=== PATIENT | female | born 1990 | race Caucasian/White ===

== ENCOUNTER → 2016-11-15 | Outpatient (CLI) | payer BC | LOC: M LAB 07:09 | PROVIDERS: ATTEND Nurse Practitioner Women's Health | DX: O99.810 Abnormal glucose complicating pregnancy (principal); Z3A.00 Weeks of gestation of pregnancy not specified ==

== ENCOUNTER → 2017-10-23 | Outpatient (REF) | payer BC | LOC: M LAB REF 12:35 | DX: D48.5 Neoplasm of uncertain behavior of skin (principal) | CPT/HCPCS: 88305 ==

== ENCOUNTER → 2018-03-05 | Outpatient (REF) | payer BC | LOC: M LAB REF 12:22 | DX: J02.9 Acute pharyngitis, unspecified (principal) | CPT/HCPCS: 87081 ==

== ENCOUNTER → 2019-01-23 | Outpatient (REF) | payer BC, OTHER ==
[2019-01-23 12:56] LABS: BASO % 0.5 % (0.0-1.0); EOS # 0.1 10^3/uL (0.0-0.50); EOS % 2.3 % (0.0-3.0); HEMATOCRIT 40.7 % (36.0-47.0); HEMOGLOBIN 13.6 g/dl (12.0-15.5); LYMPH # 2.2 10^3/uL (1.5-4.5); LYMPH % 36.2 % (24.0-44.0); MEAN CORPUSCULAR HEMOGLOBIN 30.4 pg (27.0-33.0); MEAN CORPUSCULAR HGB CONC 33.4 g/dl (32.0-36.5); MEAN CORPUSCULAR VOLUME 91.1 fl (80.0-96.0); MONO # 0.5 10^3/uL (0.0-0.8); MONO % 8.7 % (0.0-5.0); NEUTROPHILS # 3.2 10^3/uL (1.8-7.7); NEUTROPHILS % 52.1 % (36.0-66.0); PLATELET COUNT, AUTOMATED 262 10^3/uL (150-450); RED BLOOD COUNT 4.47 10^6/uL (4.00-5.40); WHITE BLOOD COUNT 6.1 10^3/uL (4.0-10.0)
[2019-01-23 13:48] LABS: ALBUMIN 3.7 GM/DL (3.2-5.2); ALT/SGPT 25 U/L (12-78); BILIRUBIN,TOTAL 0.3 MG/DL (0.2-1.0); BLOOD UREA NITROGEN 12 MG/DL (7-18); CALCIUM LEVEL 9.6 MG/DL (8.5-10.1); CARBON DIOXIDE LEVEL 26 MEQ/L (21-32); CHLORIDE LEVEL 106 MEQ/L (98-107); CHOLESTEROL LEVEL 232 MG/DL (<200); CHOLESTEROL RISK RATIO 6.823 (<5); CREATININE FOR GFR 0.66 MG/DL (0.55-1.30); FREE T4 1.22 NG/DL (0.76-1.46); GLOMERULAR FILTRATION RATE > 60.0 (>60); GLUCOSE, FASTING 87 MG/DL (70-100); HDL CHOLESTEROL 34 MG/DL (>40); LDL CHOLESTEROL 158 MG/DL (<100); NON-HDL-C 198 MG/DL; POTASSIUM SERUM 4.3 MEQ/L (3.5-5.1); SODIUM LEVEL 140 MEQ/L (136-145); THYROID STIMULATING HORMONE 0.307 uIU/ML (0.358-3.740); TOTAL PROTEIN 7.2 GM/DL (6.4-8.2); TRIGLYCERIDES LEVEL 200 MG/DL (<150)
== END ==
LOC: M LAB REF 12:05 → M LABDRWAD 12:05
PROVIDERS: ATTEND Physician Assistant
DX: E06.3 Autoimmune thyroiditis (principal); Z79.899 Other long term (current) drug therapy

== ENCOUNTER 2019-07-25 08:29 | Emergency (ER) | payer OTHER ==
[~2019-07-25] VITALS: Ht 170.2 cm; Wt 93.2 kg
[2019-07-25] MEDS ORDERED: ALL10TAB29 (08:39)
[2019-07-25] MEDS ORDERED: CYCL10TA (08:39)
[2019-07-25] MEDS ORDERED: LEVO175T2 (08:39)
[2019-07-25] MEDS ORDERED: CYCLOBENZAPRINE 10 MG TAB PO ONE (09:00)
[2019-07-25] MEDS ORDERED: IBUPROFEN 800 MG TAB PO ONE (09:00)
[2019-07-25] MEDS ORDERED: LIDOCAINE 5% (LIDODERM) PATCH TD ONE (09:00)
--- NOTE | 2019-07-25 09:23 | REP ---
Clinical: Lower back pain. Technique: AP, lateral, bilateral oblique and coned-down views of the lumbosacral spine. Findings: Endplate sclerosis with disc space narrowing noted at L5-S1. Remainder of the examination is normal. No acute fracture / compression injury or subluxation. No spondylolysis or spondylolisthesis. Impression: Mild focal degenerative spondylosis at L5-S1 Electronically Signed by Gage Pina MD 07/25/2019 09:16 A
[2019-07-25] MEDS ORDERED: NORCO, ANEXSIA 5/325MG TABLET (HYDROcodone/ACETAMINOPHEN) PO ONE (09:45)
[2019-07-25] MEDS ORDERED: NORC1TAB7 PO (10:18)
[2019-07-25 10:23] VITALS: BP 123/69
[2019-07-25] MEDS ORDERED: **NOTE PATIENT COMMENT** MISC XX SCH (21:00)
== END 2019-07-25 10:27 | disposition home or self-care (01) ==
LOC: M ED 08:29
DX: M54.5 Low back pain (principal); E03.9 Hypothyroidism, unspecified; Z79.899 Other long term (current) drug therapy; Z79.890 Hormone replacement therapy; Z88.1 Allergy status to other antibiotic agents; Z88.2 Allergy status to sulfonamides; Z88.8 Allergy status to other drugs, medicaments and biological substances

== ENCOUNTER → 2020-03-23 | Outpatient (CLI) | payer SELFPAY ==
[~2020-03-23] MED LIST: CETI-24; CYCL-707; LEVO175T2; NORC1TAB7 PO
== END ==
LOC: M LABSMTC 09:48
PROVIDERS: ATTEND Pediatrics
DX: Z20.828 Contact with and (suspected) exposure to other viral communicable diseases (principal)

== ENCOUNTER → 2020-08-04 | Outpatient (CLI) | payer BC ==
--- NOTE | 2020-08-04 11:19 | REPVR ---
PROCEDURE INFORMATION: Exam: MR Lumbar Spine Without Contrast Exam date and time: 08/04/2020 8:49 AM Age: 29 years old Clinical indication: Low back pain; Additional info: Lumbago w/ RT sciatica TECHNIQUE: Imaging protocol: Multiplanar magnetic resonance images of the lumbar spine without intravenous contrast. COMPARISON: CR Spine. Lumbosacral, complete 07/25/2019 9:00 AM FINDINGS: Vertebrae: There is no fracture or listhesis. Marrow signal is within normal limits. Spinal cord: Normal signal. No cord compression. L1-L2: There is shallow disc bulging. There is mild facet hypertrophy. No significant spinal canal stenosis. No neural foraminal stenosis. L2-L3: There is shallow disc bulging. There is mild facet hypertrophy. No significant spinal canal stenosis. No neural foraminal stenosis. Small bilateral perineural cysts. L3-L4: There is shallow disc bulging. There is mild facet and ligamentous hypertrophy. No significant spinal canal stenosis. No neural foraminal stenosis. L4-L5: There is diffuse disc bulging with small right paracentral protrusion. This indents the ventral thecal sac. There is moderate facet hypertrophy. There is mild bilateral neural foraminal narrowing. L5-S1: There is diffuse disc bulging with a superimposed small right foraminal protrusion. There is [id number] facet hypertrophy. There is mild right neural foraminal narrowing. Disc material comes into close contact with the exiting right L5 nerve root. Soft tissues: Unremarkable. IMPRESSION: Degenerative disc disease and spondylosis. At L5/S1, disc bulge with superimposed small right foraminal protrusion comes into close contact with the exiting right L5 nerve root. Electronically signed by: Kaia Ellis On 08/04/2020 11:19:36 AM
== END ==
LOC: M RAD 07:38
PROVIDERS: ATTEND Physician Assistant
DX: M54.41 Lumbago with sciatica, right side (principal); M51.26 Other intervertebral disc displacement, lumbar region; M51.36 Other intervertebral disc degeneration, lumbar region; M51.27 Other intervertebral disc displacement, lumbosacral region; M51.37 Other intervertebral disc degeneration, lumbosacral region

== ENCOUNTER → 2020-10-29 | Outpatient (REF) | payer BC ==
[2020-10-29 12:38] LABS: HEMATOCRIT 38.1 % (36.0-47.0); HEMOGLOBIN 12.4 g/dl (12.0-15.5); MEAN CORPUSCULAR HEMOGLOBIN 30.1 pg (27.0-33.0); MEAN CORPUSCULAR HGB CONC 32.5 g/dl (32.0-36.5); MEAN CORPUSCULAR VOLUME 92.5 fl (80.0-96.0); PLATELET COUNT, AUTOMATED 218 10^3/uL (150-450); RED BLOOD COUNT 4.12 10^6/uL (4.00-5.40); WHITE BLOOD COUNT 8.7 10^3/uL (4.0-10.0)
[2020-10-29 13:58] LABS: HIV 1&2 SCREEN CENTAUR NEGATIVE (NEGATIVE)
== END ==
LOC: M PLALAB 09:46
PROVIDERS: ATTEND Advanced Practice Midwife
DX: Z36.89 Encounter for other specified antenatal screening (principal)

== ENCOUNTER → 2020-11-09 | Outpatient (CLI) | payer BC | LOC: M WHC 13:21 | PROVIDERS: ATTEND Obstetrics & Gynecology | DX: Z53.8 Procedure and treatment not carried out for other reasons (principal) ==

== ENCOUNTER → 2020-12-14 | Outpatient (CLI) | payer BC ==
--- NOTE | 2020-12-14 16:36 | REP ---
INDICATION: ANATOMY. COMPARISON: 10/07/2020 TECHNIQUE: Real-time sonographic evaluation of the gravid uterus performed. FINDINGS: Estimated gestational age is18 weeks 4 days, EDC 05/13/2021. Today's measurements indicate appropriate growth. Presentation: Variable Placenta anterior, grade 1, without evidence of placenta previa. heart rate is recorded at 158 beats per minute. Amniotic fluid is subjectively normal. Closed cervical length is measured at 4.4 cm. Biometry chart: BPD: 44 mm, 19 weeks 3 days, 72nd percentile. HC: 165 mm, 19 weeks 2 days, 69th percentile AC: 134 mm, 18 weeks 6 days, 56th percentile Femur length: 29 mm, 18 weeks 6 days, 58th percentile HC to AC ratio: 1.21, normal range 1.07-1.26. Estimated weight: 264g, 67th percentile. anatomy: Cranium: Grossly normal Lateral Ventricles/Choroid Plexus: There is no hydrocephalus. There is a 5 mm cystic structure in the left choroid plexus. Posterior Fossa/Cerebellum: Grossly normal Nose/lips/profile: Not well seen due to position Four chamber heart: Not well seen due to position Right ventricular outflow tract: Not well seen due to position Left ventricular outflow tract: Not well seen due to position Left-sided stomach: Grossly normal Kidneys: Grossly normal Bladder: Grossly normal Cord Insertion: Grossly normal 3 vessel cord: Grossly normal Spine: Grossly normal IMPRESSION: Viable single intrauterine gestation as above. <Electronically signed by Kole Fink > 12/14/20 [id number]
== END ==
LOC: M WHC 15:37
PROVIDERS: ATTEND Obstetrics & Gynecology
DX: Z36.89 Encounter for other specified antenatal screening (principal); Z3A.18 18 weeks gestation of pregnancy

== ENCOUNTER → 2021-01-04 | Outpatient (REF) | payer BC | LOC: M PLALAB 13:51 | PROVIDERS: ATTEND Obstetrics & Gynecology | DX: Z53.9 Procedure and treatment not carried out, unspecified reason (principal) ==

== ENCOUNTER → 2021-01-25 | Outpatient (CLI) | payer BC ==
--- NOTE | 2021-01-25 22:41 | REP ---
INDICATION: F/U ANATOMY COMPARISON: 12/14/2020 TECHNIQUE: Transabdominal obstetrical ultrasound with color Doppler evaluation. FINDINGS: Examination demonstrates a single live intrauterine in breech presentation. motion is identified by technologist. Placenta is noted anterior and grade 1 without evidence for placenta previa or abruption. Amniotic fluid volume is normal. Cervix measures 4.2 cm in length and appears closed.. Selected gestational age: 24 weeks 4 days with KIRA 05/13/2021. Gestational age by current measurements 25 weeks 2 days with KIAR 05/08/2021. FHR equals 139 beats per minute. Estimated weight 773 grams (66thpercentile). Anatomical assessment demonstrates normal structures including facial profile, nose/lips, orbits. Previously identified choroid plexus cysts have resolved. Evaluation of the four-chamber heart/ventricular outflow tracts is again suboptimal due to positioning/motion. IMPRESSION: Single live intrauterine in breech presentation demonstrating appropriate estimated weight/growth. Continued limited evaluation of the heart/ventricular outflow tracts. <Electronically signed by Gage Pina > 01/25/21 [id number]
== END ==
LOC: M WHC 14:02
PROVIDERS: ATTEND Obstetrics & Gynecology
DX: Z36.89 Encounter for other specified antenatal screening (principal); Z3A.24 24 weeks gestation of pregnancy

== ENCOUNTER → 2021-02-03 | Outpatient (CLI) | payer BC ==
[2021-02-03 18:17] LABS: HEMATOCRIT 36.9 % (36.0-47.0); HEMOGLOBIN 11.9 g/dl (12.0-15.5); MEAN CORPUSCULAR HEMOGLOBIN 31.3 pg (27.0-33.0); MEAN CORPUSCULAR HGB CONC 32.2 g/dl (32.0-36.5); MEAN CORPUSCULAR VOLUME 97.1 fl (80.0-96.0); PLATELET COUNT, AUTOMATED 214 10^3/uL (150-450); WHITE BLOOD COUNT 10.3 10^3/uL (4.0-10.0)
== END ==
LOC: M PLALAB 15:20
PROVIDERS: ATTEND Advanced Practice Midwife
DX: O99.280 Endocrine, nutritional and metabolic diseases complicating pregnancy, unspecified trimester (principal)

== ENCOUNTER → 2021-02-07 | Outpatient (CLI) | payer BC ==
[2021-02-07 14:29] LABS: HEMATOCRIT 35.3 % (36.0-47.0); HEMOGLOBIN 11.6 g/dl (12.0-15.5); MEAN CORPUSCULAR HEMOGLOBIN 31.4 pg (27.0-33.0); MEAN CORPUSCULAR HGB CONC 32.9 g/dl (32.0-36.5); MEAN CORPUSCULAR VOLUME 95.7 fl (80.0-96.0); PLATELET COUNT, AUTOMATED 193 10^3/uL (150-450); RED BLOOD COUNT 3.69 10^6/uL (4.00-5.40); WHITE BLOOD COUNT 10.6 10^3/uL (4.0-10.0)
== END ==
LOC: M PLALAB 09:33
PROVIDERS: ATTEND Advanced Practice Midwife
DX: Z36.89 Encounter for other specified antenatal screening (principal)

== ENCOUNTER → 2021-02-24 | Outpatient (CLI) | payer BC ==
[2021-02-24 10:38] LABS: FREE T4 0.58 NG/DL (0.76-1.46); THYROID STIMULATING HORMONE 5.74 uIU/ML (0.358-3.740)
== END ==
LOC: M LAB 07:29
PROVIDERS: ATTEND Advanced Practice Midwife
DX: Z36.89 Encounter for other specified antenatal screening (principal); Z3A.26 26 weeks gestation of pregnancy; O99.280 Endocrine, nutritional and metabolic diseases complicating pregnancy, unspecified trimester; E03.9 Hypothyroidism, unspecified

== ENCOUNTER → 2021-03-01 | Outpatient (CLI) | payer BC ==
--- NOTE | 2021-03-01 16:02 | REP ---
INDICATION: F/U ANATOMY. OBTAIN FOUR-CHAMBER HEART VIEW AND VENTRICULAR OUTFLOW TRACKS. COMPARISON: 01/25/2021 TECHNIQUE: Transabdominal FINDINGS: Multiple ultrasonographic images of the gravid uterus shows a single living intrauterine gestation in the transverse position. Doppler interrogation of the heart shows a heart rate of 170 beats per minute. The placenta is anterior and not low-lying. The cervix measures 5.5 cm length and is closed. The subjective amniotic fluid volume is within normal limits. BPD: 7.7 cm 30 weeks 6 days HC: 28.5 cm 31 weeks 2 days AC: 25.8 cm 30 weeks 0 days FL: 5.8 cm 30 weeks 2 days The estimated weight is 1539 g which is at the 62nd percentile for a 29 week 4 day gestational age. The ventricular outflow tracts were seen to be within normal limits, however, four-chamber heart view was still suboptimal. IMPRESSION: Single living intrauterine gestation as described above with an estimated gestational age of 30 weeks 4 days via composite criteria and an estimated date of delivery of 05/06/2021. Repeat examination for optimal visualization of the four-chamber heart is recommended. <Electronically signed by Pavan Burnett > 03/01/21 [id number]
== END ==
LOC: M WHC 15:08
PROVIDERS: ATTEND Advanced Practice Midwife
DX: Z34.92 Encounter for supervision of normal pregnancy, unspecified, second trimester (principal); Z3A.30 30 weeks gestation of pregnancy

== ENCOUNTER → 2021-03-15 | Outpatient (CLI) | payer BC ==
[~2021-03-15] MED LIST changes: -LEVO175T2; +LEVO175T2 PO; +OMEP40CA4 PO; +OXYC-517 PO; +PRENTAB9 PO; +SIME180C25 PO
--- NOTE | 2021-03-15 13:38 | REP ---
INDICATION: F/U ANATOMY COMPARISON: 03/01/2021 TECHNIQUE: Transabdominal obstetrical ultrasound with color Doppler evaluation. FINDINGS: Examination demonstrates a single live intrauterine in cephalic presentation. motion is identified by technologist. Placenta is noted anterior and grade 1 without evidence for placenta previa or abruption. Amniotic fluid volume is normal. Cervix measures 5.3 cm in length and appears closed.. Selected gestational age: 31 weeks 4 days with KIRA 05/13/2021. Gestational age by current measurements 33 weeks 3 days with KIRA 04/30/2021. FHR equals 138 beats per minute. Estimated weight 2208 grams (greater than 97thpercentile based on selected age at 31 weeks 1 day). Anatomical assessment demonstrates normal structures including four-chamber heart/ventricular outflow tracts. IMPRESSION: Single live advanced gestation in cephalic presentation demonstrating greater than expected interval growth. Images of the heart and cardiac ventricular outflow tracts appear normal. <Electronically signed by Gage Pina > 03/15/21 [id number]
== END ==
LOC: M WHC 13:10
PROVIDERS: ATTEND Obstetrics & Gynecology
DX: Z36.2 Encounter for other antenatal screening follow-up (principal); Z3A.31 31 weeks gestation of pregnancy

== ENCOUNTER 2021-03-22 00:48 | Outpatient (CLI) | payer BC ==
[2021-03-22] VITALS (8 sets, daily range): BP systolic 108–130; BP diastolic 51–62
[~2021-03-22] VITALS: Ht 167.6 cm; Wt 102.3 kg
[~2021-03-22 00:48] MED LIST changes: -OMEP40CA4 PO; -OXYC-517 PO; -PRENTAB9 PO; -SIME180C25 PO
[2021-03-22] MEDS ORDERED: OMEP40CA4 PO (01:06)
[2021-03-22] MEDS ORDERED: PRENTAB9 PO (01:06)
[2021-03-22] MEDS ORDERED: SIME180C25 PO (01:06)
--- NOTE | 2021-03-22 01:43 | IPNPDOC ---
Text Note Date of Service The patient was seen on 03/22/21. NOTE S: Natasha is a 30-year-old female who is at 32 4/7 with an KIRA of 05/13/2021 which was confirmed via first trimester ultrasound. She initiated care at [facility] and her has been complicated by GDM, hypothyroidism, GERD, migraines, and low back pain. She complains of abdominal pain that began yesterday at 1830. The pain is in the upper quadrants and is described as sharp pain that comes in waves. Patient states she feeling movement. She denies any loss of fluids, vaginal bleeding, or uterine contractions. Pain is 7/10 when it occurs. Medical history: Hypothyroidism controlled with 125 mcg daily, migraines, low b ack pain, GERD Surgical Hx: tonsillectomy and adenoidectomy Family history: stroke, heart attack, polycynthemia vera, breast cancer Social Hx: single (FOB present and supportive), non-smoker, denies history of drug or alcohol abuse. OB Hx: -12/30/14: of living female at 41.1 weeks gestation weighting 10 lbs 5 -02/14/17: of living female weighting 9 lbs 6 oz O: VS, ultrasound and labs-see below FHR 150 with moderate variability, no decelerations. [place] with no uterine contractions. General: Alert and oriented x 3. Appears to be uncomfortable and moaning. Respiratory: Breathing comfortably on room air, no use of accessory muscles. Abdomen: Gravid, soft. Non-tender to palpation. A: IUP at 32 4/7, abdominal pain, kidney stones, biliary colic related P: Labs as ordered: see below U/S ordered: see below. IV to be started. NS bolus then 125 cc/hr. IV Rochephin ordered due to elevated WBC count. Antiemetics and PO and IV pain medication ordered. Reviewed diagnosis with patient and . Consider Flomax. VS,Fishbone, I+O VS, Fishbone, I+O Vital Signs Date Time Temp Pulse Resp B/P (MAP) Pulse Ox O2 Delivery O2 Flow Rate FiO2 03/22/21 01:07 98.1 100 20 130/62 (84) Item Value Date Time White Blood Count 17.0 10^3/uL H 03/22/21 0139 Red Blood Count 3.77 10^6/uL L 03/22/21 0139 Hemoglobin 11.3 g/dl L 03/22/21 0139 Hematocrit 34.2 % L 03/22/21 013 Mean Corpuscular Volume 90.7 fl 03/22/21 013 Mean Corpuscular Hemoglobin 30.0 pg 03/22/21 013 Mean Corpuscular Hemoglobin Concent 33.0 g/dl 03/22/21 013 Red Cell Distribution Width 14.1 % 03/22/21 013 Platelet Count 208 10^3/uL 03/22/21 0139 Nucleated Red Blood Cells % (auto) 0.0 % 03/22/21 013 Item Value Date Time Sodium Level 138 MEQ/L 03/22/21 013 Potassium Level 3.8 MEQ/L 03/22/21 013 Chloride Level 107 MEQ/L 03/22/21 013 Carbon Dioxide Level 21 MEQ/L 03/22/21 013 Anion Gap 10 MEQ/L 03/22/21 013 Blood Urea Nitrogen 8 MG/DL 03/22/21 0139 Creatinine 0.40 MG/DL L 03/22/21 013 Glomerular Filtration Rate > 60.0 03/22/21 013 Fasting Glucose 106 MG/DL H 03/22/21 0139 Calcium Level 9.0 MG/DL 03/22/21 0139 Total Bilirubin 0.5 MG/DL 03/22/21 0139 Aspartate Amino Transf (AST/SGOT) 13 U/L 03/22/21 0139 Alanine Aminotransferase (ALT/SGPT) 14 U/L 03/22/21 013 Alkaline Phosphatase 91 U/L 03/22/21 0139 Total Protein 6.2 GM/DL L 03/22/21 0139 Albumin 2.7 GM/DL L 03/22/21 0139 Amylase Level 34 U/L 03/22/21 0139 Albumin/Globulin Ratio 0.8 L 03/22/21 0139 Lipase 81 U/L 03/22/21 013 Item Value Date Time Urine Color YELLOW 03/22/21 0139 Urine Appearance CLOUDY H 03/22/21 0139 Urine pH 6.0 UNITS 03/22/21 0139 Urine Specific [place] 1.015 03/22/21 013 Urine Protein NEGATIVE mg/dL 10/12/21 0139 Urine Glucose (Auto)(UA) NEGATIVE mg/dL 03/22/21138 Urine Ketones (Auto) 1+ mg/dL H 03/22/21138 Urine Blood NEGATIVE 03/22/21138 Urine Nitrite NEGATIVE 03/22/21138 Urine Bilirubin NEGATIVE 03/22/21138 Urine Urobilinogen 2.0 mg/dL H 03/22/21138 Urine Leukocyte Esterase (Auto) NEGATIVE 03/22/21138 Urine WBC (Auto) 4 /HPF H 03/22/21138 Urine RBC (Auto) 2 /HPF 03/22/21138 Urine Hyaline Casts (Auto) 0 /LPF 03/22/21138 Urine Bacteria (Auto) 1+ H 03/22/21138 Urine Squamous Epithelial Cells 5 /HPF 03/22/21138 Urine Calcium Oxalate Cryst (Auto) MODERATE 03/22/21138 Urine Mucus (Auto) SMALL 03/22/21138 NAME: NATASHA THAO DATE OF : 1990 BUSINESS NUMBER: [id number] AGE: 30 SEX: F REPORT #: [id number] ROOM: [facility] TECHNOLOGIST: [facility] DOCTOR: JUSTIN FABIAN CNM Ordered for Date&Time: 03/22/21111 cc: [~ rep ct ivnm] Service Date&Time: 03/22/21219 EXAMINATION REQUESTED: Pelvis, limited US REASON FOR PATIENT VISIT: ABDOMINAL PAIN REASON FOR EXAMINATION: abdominal pain; rule out appedicitis PROCEDURE INFORMATION: Exam: US Abdomen, Limited; Appendix Exam date and time: 03/22/2021 2:20 AM Age: 30 years old Clinical indication: Abdominal pain; Right lower quadrant; Additional info: Abdominal pain; Rule out appedicitis TECHNIQUE: Imaging protocol: US abdomen. Real time ultrasound with image documentation. Limited exam focused on the appendix. COMPARISON: US OBS FOLLOW UP OR REPEAT 03/15/2021 1:13 PM FINDINGS: Appendix: Nonvisualization of the appendix. Uterus: Single viable intrauterine gestation. Gestation: heart rate is 135 bpm. IMPRESSION: Nonvisualization of the appendix. If there is high clinical concern for acute appendicitis MRI of the pelvis is suggested for further evaluation. Electronically signed by: Amilcar Dash On 03/22/2021 03:26:58 AM NAME: NATASHA THAO DATE OF : 1990 BUSINESS NUMBER: [id number] AGE: 30 SEX: F REPORT #: [id number] ROOM: [facility] TECHNOLOGIST: [facility] DOCTOR: JUSTIN FABIAN CNM Ordered for Date&Time: 03/22/21111 cc: [~ rep ct ivnm] Service Date&Time: 03/22/21219 EXAMINATION REQUESTED: GALLBLADDER US REASON FOR PATIENT VISIT: ABDOMINAL PAIN REASON FOR EXAMINATION: abdominal pain; PROCEDURE INFORMATION: Exam: US Abdomen, Limited; Right Upper Quadrant Exam date and time: 03/22/2021 2:20 AM Age: 30 years old Clinical indication: Abdominal pain; Acute; TECHNIQUE: Imaging protocol: US abdomen. Real time ultrasound with image documentation. Limited exam focused on the right upper quadrant. COMPARISON: CT ABD PELVIS WITH CONTRAST 02/20/2016 6:50 AM FINDINGS: Liver: Coarse echogenic attenuating liver parenchyma suggestive of steatosis. Gallbladder: Sludge in the gallbladder. No specific evidence of acute cholecystitis. Common bile duct: Normal. No stones. No dilation. Pancreas: Visualized pancreas is unremarkable. Right kidney: Normal. No mass. No hydronephrosis. IMPRESSION: Sludge in the gallbladder. No specific evidence of acute cholecystitis. Electronically signed by: Amilcar Dash On 03/22/2021 03:25:26 AM DD: AMILCAR DASH MD 03/22/21219 DT: CESARIO 03/22/21324 DS: OLESYA 03/22/21324 JUSTIN FABIAN CNM Mar 22, 2021 01:43
[2021-03-22] MEDS ORDERED: MORPHINE 4 MG/ML 1ML VIAL/SYRINGE (J2270) IV PRN (01:50)
[2021-03-22 02:00] LABS: HEMATOCRIT 34.2 % (36.0-47.0); HEMOGLOBIN 11.3 g/dl (12.0-15.5); MEAN CORPUSCULAR VOLUME 90.7 fl (80.0-96.0); PLATELET COUNT, AUTOMATED 208 10^3/uL (150-450); RED BLOOD COUNT 3.77 10^6/uL (4.00-5.40)
[2021-03-22 02:06] LABS: APPEARANCE, URINE CLOUDY (CLEAR); BACTERIA, URINE AUTO 1+ (NEGATIVE); BILIRUBIN, URINE AUTO NEGATIVE (NEGATIVE); BLOOD, URINE BLOOD NEGATIVE (NEGATIVE); CALCIUM OXALATE CRYSTALS MODERATE; COLOR, URINE YELLOW (YELLOW); GLUCOSE, URINE (UA) AUTO NEGATIVE (NEGATIVE); KETONE, URINE AUTO 1+ mg/dL (NEGATIVE); LEUKOCYTE ESTERASE, URINE AUTO NEGATIVE (NEGATIVE); MUCUS, URINE SMALL (NEGATIVE); NITRITE, URINE AUTO NEGATIVE (NEGATIVE); PROTEIN, URINE AUTO NEGATIVE (NEGATIVE); RBC, URINE AUTO 2 /HPF (0-3); SPECIFIC GRAVITY URINE AUTO 1.015 (1.002-1.035); SQUAMOUS EPITHELIAL CELL UR AU 5 /HPF (0-6); WBC, URINE AUTO 4 /HPF (0-3)
[2021-03-22 02:29] LABS: ALBUMIN 2.7 GM/DL (3.2-5.2); ALT/SGPT 14 U/L (12-78); AMYLASE 34 U/L (25-115); BILIRUBIN,TOTAL 0.5 MG/DL (0.2-1.0); BLOOD UREA NITROGEN 8 MG/DL (7-18); CARBON DIOXIDE LEVEL 21 MEQ/L (21-32); CHLORIDE LEVEL 107 MEQ/L (98-107); GLOMERULAR FILTRATION RATE > 60.0 (>60); GLUCOSE, FASTING 106 MG/DL (70-100); LIPASE 81 U/L (73-393); POTASSIUM SERUM 3.8 MEQ/L (3.5-5.1); SODIUM LEVEL 138 MEQ/L (136-145); TOTAL PROTEIN 6.2 GM/DL (6.4-8.2)
[2021-03-22] MEDS ORDERED: PERCOCET 5MG/325MG TAB PO PRN (02:30)
[2021-03-22] MEDS ORDERED: HOME MED LIST COMPLETE! XX SCH (03:05)
--- NOTE | 2021-03-22 03:26 | REPVR ---
PROCEDURE INFORMATION: Exam: US Abdomen, Limited; Right Upper Quadrant Exam date and time: 03/22/2021 2:20 AM Age: 30 years old Clinical indication: Abdominal pain; Acute; TECHNIQUE: Imaging protocol: US abdomen. Real time ultrasound with image documentation. Limited exam focused on the right upper quadrant. COMPARISON: CT ABD PELVIS WITH CONTRAST 02/20/2016 6:50 AM FINDINGS: Liver: Coarse echogenic attenuating liver parenchyma suggestive of steatosis. Gallbladder: Sludge in the gallbladder. No specific evidence of acute cholecystitis. Common bile duct: Normal. No stones. No dilation. Pancreas: Visualized pancreas is unremarkable. Right kidney: Normal. No mass. No hydronephrosis. IMPRESSION: Sludge in the gallbladder. No specific evidence of acute cholecystitis. Electronically signed by: Amilcar Dash On 03/22/2021 03:25:26 AM
--- NOTE | 2021-03-22 03:27 | REPVR ---
PROCEDURE INFORMATION: Exam: US Abdomen, Limited; Appendix Exam date and time: 03/22/2021 2:20 AM Age: 30 years old Clinical indication: Abdominal pain; Right lower quadrant; Additional info: Abdominal pain; Rule out appedicitis TECHNIQUE: Imaging protocol: US abdomen. Real time ultrasound with image documentation. Limited exam focused on the appendix. COMPARISON: US OBS FOLLOW UP OR REPEAT 03/15/2021 1:13 PM FINDINGS: Appendix: Nonvisualization of the appendix. Uterus: Single viable intrauterine gestation. Gestation: heart rate is 135 bpm. IMPRESSION: Nonvisualization of the appendix. If there is high clinical concern for acute appendicitis MRI of the pelvis is suggested for further evaluation. Electronically signed by: Amilcar Dash On 03/22/2021 03:26:58 AM
[2021-03-22] MEDS ORDERED: BUTORPHANOL 2 MG/ML INJ (J0595) IV ONE (04:35)
[2021-03-22] MEDS ORDERED: PROMETHAZINE INJ 25 MG/ML VIAL (J2550) IV ONE (04:35)
[2021-03-22] MEDS ORDERED: NS 1,000 ML IV SCH (04:35)
[2021-03-22] MEDS ORDERED: NS 1,000 ML IV ONE (04:35)
[2021-03-22] MEDS ORDERED: ONDANSETRON 4MG/2ML VIAL IV PRN (04:35)
[2021-03-22] MEDS ORDERED: cefTRIAXone SOD 2 GM in D5W MINI-BAG PLUS 50 ML IV SCH (05:00)
[2021-03-22] MEDS ORDERED: OXYC-517 PO (09:24)
== END 2021-03-22 09:55 | disposition home or self-care (01) ==
LOC: M LDO 00:48
PROVIDERS: ATTEND Advanced Practice Midwife
DX: O26.893 Other specified pregnancy related conditions, third trimester (principal); N20.0 Calculus of kidney; O99.283 Endocrine, nutritional and metabolic diseases complicating pregnancy, third trimester; E03.9 Hypothyroidism, unspecified; O99.353 Diseases of the nervous system complicating pregnancy, third trimester; G43.909 Migraine, unspecified, not intractable, without status migrainosus; O24.419 Gestational diabetes mellitus in pregnancy, unspecified control; M54.50 Low back pain, unspecified; O99.613 Diseases of the digestive system complicating pregnancy, third trimester; K21.9 Gastro-esophageal reflux disease without esophagitis; Z3A.32 32 weeks gestation of pregnancy
CPT/HCPCS: 59025; 76705; 76857; 80053; 81001; 82150; 83690; 85027; 96374; 96375; G0378; G0463; J0595; J0696; J2270

== ENCOUNTER → 2021-03-25 | Outpatient (CLI) | payer BC ==
[~2021-03-25] MED LIST changes: +OMEP40CA4 PO; +OXYC-517 PO; +PRENTAB9 PO; +SIME180C25 PO
== END ==
LOC: M PLALAB 08:20
PROVIDERS: ATTEND Obstetrics & Gynecology
DX: E03.9 Hypothyroidism, unspecified (principal)

== ENCOUNTER → 2021-04-11 | Outpatient (CLI) | payer BC ==
--- NOTE | 2021-04-11 16:39 | REP ---
INDICATION: GROWTH GESTATIONAL DIABETES. COMPARISON: 03/15/2021. TECHNIQUE: Real-time sonographic evaluation of the gravid uterus performed. FINDINGS: Estimated gestational age is35 weeks 3 days, EDC 05/13/2021. Today's measurements indicate appropriate growth. Presentation: Cephalic Placenta anterior, grade 2, without evidence of placenta previa. heart rate is recorded at 169 beats per minute. Amniotic fluid is subjectively normal. BRAULIO 11.3, normal 7.8-24.9. Closed cervical length is measured at 4.3 cm. SD ratio umbilical artery 2.38, normal 1.66-3.56. RI 0.58, normal 0.46-0.72. Biometry chart: BPD: 93 mm, 37 weeks 5 days, 83rd percentile. HC: 333 mm, 38 weeks 0 days, 92nd percentile AC: 317 mm, 35 weeks 4 days, 53rd percentile Femur length: 70 mm, 35 weeks 6 days, 57th percentile HC to AC ratio: 1.05, normal range 0.93-1.12. Estimated weight: 2866g, 69th percentile. IMPRESSION: Viable single intrauterine gestation as above. <Electronically signed by Kole Fink > 04/11/21 [id number]
== END ==
LOC: M WHC 14:37
PROVIDERS: ATTEND Obstetrics & Gynecology
DX: O24.419 Gestational diabetes mellitus in pregnancy, unspecified control (principal); Z3A.35 35 weeks gestation of pregnancy

== ENCOUNTER → 2021-04-12 | Outpatient (CLI) | payer BC ==
[2021-04-12 15:19] LABS: HEMATOCRIT 34.5 % (36.0-47.0); HEMOGLOBIN 11.1 g/dl (12.0-15.5); MEAN CORPUSCULAR HEMOGLOBIN 29.2 pg (27.0-33.0); MEAN CORPUSCULAR HGB CONC 32.2 g/dl (32.0-36.5); MEAN CORPUSCULAR VOLUME 90.8 fl (80.0-96.0); PLATELET COUNT, AUTOMATED 221 10^3/uL (150-450); WHITE BLOOD COUNT 8.5 10^3/uL (4.0-10.0)
[2021-04-12 15:45] LABS: ALBUMIN 2.7 GM/DL (3.2-5.2); ALT/SGPT 22 U/L (12-78); BILIRUBIN,TOTAL 0.6 MG/DL (0.2-1.0); BLOOD UREA NITROGEN 5 MG/DL (7-18); CALCIUM LEVEL 9.1 MG/DL (8.5-10.1); CARBON DIOXIDE LEVEL 24 MEQ/L (21-32); CHLORIDE LEVEL 106 MEQ/L (98-107); CREATININE FOR GFR 0.47 MG/DL (0.55-1.30); GLOMERULAR FILTRATION RATE > 60.0 (>60); GLUCOSE, FASTING 73 MG/DL (70-100); POTASSIUM SERUM 3.3 MEQ/L (3.5-5.1); SODIUM LEVEL 137 MEQ/L (136-145); TOTAL PROTEIN 6.1 GM/DL (6.4-8.2)
== END ==
LOC: M PLALAB 12:38
PROVIDERS: ATTEND Obstetrics & Gynecology
DX: Z36.85 Encounter for antenatal screening for Streptococcus B (principal)

== ENCOUNTER → 2021-04-14 | Outpatient (CLI) | payer BC, SELFPAY | LOC: M LABSMTC 11:20 | PROVIDERS: ATTEND Pediatrics | DX: Z20.822 Contact with and (suspected) exposure to COVID-19 (principal) | CPT/HCPCS: C9803; U0003 ==

== ENCOUNTER → 2021-07-06 | Outpatient (CLI) | payer BC ==
[~2021-07-06] MED LIST changes: +FIOR1CAP PO; +INSUNSD SC; +LEVO150T7 PO
[2021-07-06 14:24] LABS: FREE T4 0.82 NG/DL (0.76-1.46); THYROID STIMULATING HORMONE 4.87 uIU/ML (0.358-3.740)
== END ==
LOC: M PLALAB 11:31
PROVIDERS: ATTEND Obstetrics & Gynecology
DX: Z36.89 Encounter for other specified antenatal screening (principal); O24.424 Gestational diabetes mellitus in childbirth, insulin controlled; E03.9 Hypothyroidism, unspecified; Z3A.00 Weeks of gestation of pregnancy not specified

== ENCOUNTER → 2021-07-27 | Outpatient (CLI) | payer BC ==
[2021-07-27 09:32] LABS: FREE T4 0.91 NG/DL (0.76-1.46); THYROID STIMULATING HORMONE 1.6 uIU/ML (0.358-3.740)
== END ==
LOC: M LAB 07:16
PROVIDERS: ATTEND Obstetrics & Gynecology
DX: O24.424 Gestational diabetes mellitus in childbirth, insulin controlled (principal); O99.280 Endocrine, nutritional and metabolic diseases complicating pregnancy, unspecified trimester; E03.9 Hypothyroidism, unspecified; Z3A.00 Weeks of gestation of pregnancy not specified

== ENCOUNTER → 2021-07-27 | Outpatient (CLI) | payer BC ==
[2021-07-27 08:30] LABS: BASO # 0.1 10^3/uL (0.0-0.2); BASO % 0.7 % (0.0-1.0); EOS # 0.2 10^3/uL (0.0-0.5); EOS % 3.6 % (0.0-3.0); HEMATOCRIT 38.3 % (36.0-47.0); HEMOGLOBIN 12.2 g/dl (12.0-15.5); LYMPH % 29.7 % (24.0-44.0); MEAN CORPUSCULAR HEMOGLOBIN 28.6 pg (27.0-33.0); MEAN CORPUSCULAR HGB CONC 31.9 g/dl (32.0-36.5); MEAN CORPUSCULAR VOLUME 89.9 fl (80.0-96.0); MONO # 0.6 10^3/uL (0.0-0.8); MONO % 8.3 % (2.0-8.0); NEUTROPHILS # 3.9 10^3/uL (1.5-8.5); NEUTROPHILS % 57.4 % (36.0-66.0); PLATELET COUNT, AUTOMATED 317 10^3/uL (150-450); RED BLOOD COUNT 4.26 10^6/uL (4.00-5.40); WHITE BLOOD COUNT 6.7 10^3/uL (4.0-10.0)
[2021-07-27 09:00] LABS: ALBUMIN 3.9 GM/DL (3.2-5.2); ALT/SGPT 36 U/L (12-78); BILIRUBIN,TOTAL 0.4 MG/DL (0.2-1.0); BLOOD UREA NITROGEN 15 MG/DL (7-18); CALCIUM LEVEL 9.1 MG/DL (8.5-10.1); CARBON DIOXIDE LEVEL 27 MEQ/L (21-32); CHLORIDE LEVEL 108 MEQ/L (98-107); CHOLESTEROL LEVEL 239 MG/DL (<200); CHOLESTEROL RISK RATIO 5.829 (<5); CREATININE FOR GFR 0.66 MG/DL (0.55-1.30); FREE T4 0.96 NG/DL (0.76-1.46); GLOMERULAR FILTRATION RATE > 60.0 (>60); GLUCOSE, FASTING 83 MG/DL (70-100); HDL CHOLESTEROL 41 MG/DL (>40); LDL CHOLESTEROL 175 MG/DL (<100); NON-HDL-C 198 MG/DL; POTASSIUM SERUM 4.1 MEQ/L (3.5-5.1); SODIUM LEVEL 141 MEQ/L (136-145); TOTAL PROTEIN 7.3 GM/DL (6.4-8.2); TRIGLYCERIDES LEVEL 114 MG/DL (<150)
[2021-07-27 09:15] LABS: TOTAL 25(OH) VITAMIN D 30.6 NG/ML (30.0-100.0)
== END ==
LOC: M LAB 07:22
PROVIDERS: ATTEND Physician Assistant
DX: E06.3 Autoimmune thyroiditis (principal); E78.2 Mixed hyperlipidemia; E55.9 Vitamin D deficiency, unspecified

== ENCOUNTER → 2021-11-28 | Outpatient (CLI) | payer OTHER | LOC: M ADAMS 10:33 | PROVIDERS: ATTEND Physician Assistant | DX: M25.511 Pain in right shoulder (principal); M54.2 Cervicalgia ==

== ENCOUNTER → 2021-12-05 | Outpatient (REF) | payer OTHER | LOC: M LAB REF 18:27 | PROVIDERS: ATTEND Nurse Practitioner Adult Health | DX: J02.9 Acute pharyngitis, unspecified (principal) ==

== ENCOUNTER → 2021-12-08 | Outpatient (CLI) | payer OTHER ==
[2021-12-08 09:01] LABS: BASO % 0.7 % (0.0-1.0); EOS # 0.1 10^3/uL (0.0-0.5); EOS % 1.5 % (0.0-3.0); HEMATOCRIT 36.6 % (36.0-47.0); HEMOGLOBIN 11.7 g/dl (12.0-15.5); LYMPH # 1.6 10^3/uL (1.5-5.0); LYMPH % 26.7 % (24.0-44.0); MEAN CORPUSCULAR HEMOGLOBIN 28.7 pg (27.0-33.0); MEAN CORPUSCULAR VOLUME 89.9 fl (80.0-96.0); MONO # 0.6 10^3/uL (0.0-0.8); MONO % 10.8 % (2.0-8.0); NEUTROPHILS # 3.6 10^3/uL (1.5-8.5); PLATELET COUNT, AUTOMATED 267 10^3/uL (150-450); RED BLOOD COUNT 4.07 10^6/uL (4.00-5.40); WHITE BLOOD COUNT 5.9 10^3/uL (4.0-10.0)
[2021-12-08 09:22] LABS: ERYTHROCYTE SEDIMENTATION RATE 34 mm/hr (0-20)
[2021-12-08 09:29] LABS: ALT/SGPT 44 U/L (12-78); BILIRUBIN,TOTAL 0.5 MG/DL (0.2-1.0); BLOOD UREA NITROGEN 12 MG/DL (7-18); C REACTIVE PROTEIN QUANTITATIV 0.77 MG/DL (0.00-0.30); CALCIUM LEVEL 8.9 MG/DL (8.5-10.1); CARBON DIOXIDE LEVEL 25 MEQ/L (21-32); CHLORIDE LEVEL 109 MEQ/L (98-107); CREATININE FOR GFR 0.72 MG/DL (0.55-1.30); GLOMERULAR FILTRATION RATE > 60.0 (>60); GLUCOSE, FASTING 90 MG/DL (70-100); POTASSIUM SERUM 4.3 MEQ/L (3.5-5.1); SODIUM LEVEL 139 MEQ/L (136-145); TOTAL PROTEIN 7.3 GM/DL (6.4-8.2)
== END ==
LOC: M LAB 08:24
PROVIDERS: ATTEND Nurse Practitioner Adult Health
DX: J02.9 Acute pharyngitis, unspecified (principal); H66.93 Otitis media, unspecified, bilateral

== ENCOUNTER → 2022-05-21 | Outpatient (CLI) | payer OTHER ==
[2022-05-21 09:38] LABS: BASO % 0.6 % (0.0-1.0); EOS # 0.1 10^3/uL (0.0-0.5); EOS % 2.4 % (0.0-3.0); HEMATOCRIT 39.2 % (36.0-47.0); HEMOGLOBIN 12.6 g/dl (12.0-15.5); LYMPH # 1.8 10^3/uL (1.5-5.0); LYMPH % 32.6 % (24.0-44.0); MEAN CORPUSCULAR HEMOGLOBIN 28.7 pg (27.0-33.0); MEAN CORPUSCULAR HGB CONC 32.1 g/dl (32.0-36.5); MEAN CORPUSCULAR VOLUME 89.3 fl (80.0-96.0); MONO # 0.5 10^3/uL (0.0-0.8); MONO % 9.5 % (2.0-8.0); NEUTROPHILS # 2.9 10^3/uL (1.5-8.5); NEUTROPHILS % 54.7 % (36.0-66.0); PLATELET COUNT, AUTOMATED 254 10^3/uL (150-450); RED BLOOD COUNT 4.39 10^6/uL (4.00-5.40); WHITE BLOOD COUNT 5.4 10^3/uL (4.0-10.0)
[2022-05-21 11:13] LABS: ALBUMIN 4.1 G/DL (3.2-5.2); ALKALINE PHOSPHATASE 47 U/L (46-116); ALT/SGPT 23 U/L (7.0-40); AST/SGOT 14 U/L (<34); BILIRUBIN,TOTAL 0.5 MG/DL (0.3-1.2); BLOOD UREA NITROGEN 16 MG/DL (9-23); CALCIUM LEVEL 9.6 MG/DL (8.5-10.1); CARBON DIOXIDE LEVEL 26 MMOL/L (20-31); CHLORIDE LEVEL 104 MMOL/L (98-107); CHOLESTEROL LEVEL 240 MG/DL (<200); CHOLESTEROL RISK RATIO 6.16 (<5); FREE T4 1.34 NG/DL (0.89-1.76); GLOMERULAR FILTRATION RATE > 60.0 (>60); GLUCOSE, FASTING 91 MG/DL (60-100); HDL CHOLESTEROL 38.9 MG/DL (>40); LDL CHOLESTEROL 175.1 MG/DL (<100); NON-HDL-C 201 MG/DL; POTASSIUM SERUM 4.4 MMOL/L (3.5-5.1); SODIUM LEVEL 138 MMOL/L (136-145); TOTAL PROTEIN 7.1 G/DL (5.7-8.2); TRIGLYCERIDES LEVEL 130 MG/DL (<150)
== END ==
LOC: M LAB 08:52
PROVIDERS: ATTEND Family Medicine
DX: E78.2 Mixed hyperlipidemia (principal); E55.9 Vitamin D deficiency, unspecified; Z13.29 Encounter for screening for other suspected endocrine disorder; Z13.0 Encounter for screening for diseases of the blood and blood-forming organs and certain disorders involving the immune mechanism

== ENCOUNTER 2022-06-27 09:37 | Emergency (ER) | payer OTHER ==
[~2022-06-27] VITALS: Ht 170.2 cm; Wt 79.5 kg
[2022-06-27 09:38] VITALS: BP 120/78
== END 2022-06-27 19:58 | disposition left against medical advice (07) ==
LOC: M ED 09:37
DX: Z53.21 Procedure and treatment not carried out due to patient leaving prior to being seen by health care provider (principal)

== ENCOUNTER → 2023-07-24 | Outpatient (REF) | payer OTHER | LOC: M LAB REF 17:02 | PROVIDERS: ATTEND Nurse Practitioner Adult Health | DX: N89.8 Other specified noninflammatory disorders of vagina (principal); B95.0 Streptococcus, group A, as the cause of diseases classified elsewhere ==

== ENCOUNTER → 2023-12-20 | Outpatient (CLI) | payer OTHER | LOC: M WHC 08:49 | PROVIDERS: ATTEND Nurse Practitioner Adult Health | DX: D48.7 Neoplasm of uncertain behavior of other specified sites (principal) ==

== ENCOUNTER → 2024-02-26 | Outpatient (REF) | payer OTHER, BC ==
[2024-02-28 15:22] LABS: HPV APTIMA Not Detected (Not Detected)
== END ==
LOC: M SFHCWAGY 13:40
PROVIDERS: ATTEND Nurse Practitioner Family
DX: Z12.4 Encounter for screening for malignant neoplasm of cervix (principal); Z11.51 Encounter for screening for human papillomavirus (HPV)

== ENCOUNTER → 2024-06-18 | Outpatient (CLI) | payer OTHER ==
[~2024-06-18] MED LIST changes: -SIME180C25 PO; +SIME1CAP4 PO
[2024-06-18 09:19] LABS: BASO # 0.1 10^3/uL (0.0-0.2); BASO % 0.5 % (0.0-1.0); EOS # 0.2 10^3/uL (0.0-0.5); EOS % 1.9 % (0.0-3.0); HEMATOCRIT 38.5 % (36.0-47.0); HEMOGLOBIN 11.9 g/dl (12.0-15.5); LYMPH # 1.2 10^3/uL (1.5-5.0); LYMPH % 12.2 % (24.0-44.0); MEAN CORPUSCULAR HEMOGLOBIN 26.6 pg (27.0-33.0); MEAN CORPUSCULAR HGB CONC 30.9 g/dl (32.0-36.5); MEAN CORPUSCULAR VOLUME 86.1 fl (80.0-96.0); MONO # 0.4 10^3/uL (0.0-0.8); MONO % 4.4 % (2.0-8.0); NEUTROPHILS # 7.6 10^3/uL (1.5-8.5); NEUTROPHILS % 80.5 % (36.0-66.0); PLATELET COUNT, AUTOMATED 263 10^3/uL (150-450); RED BLOOD COUNT 4.47 10^6/uL (4.00-5.40); WHITE BLOOD COUNT 9.5 10^3/uL (4.0-10.0)
[2024-06-18 09:53] LABS: ALBUMIN 4.1 G/DL (3.2-5.2); ALKALINE PHOSPHATASE 63 U/L (35-104); ALT/SGPT 33 U/L (7.0-40); AST/SGOT 21 U/L (<34); BILIRUBIN,TOTAL 0.4 MG/DL (0.3-1.2); BLOOD UREA NITROGEN 12 MG/DL (9-23); CALCIUM LEVEL 9.7 MG/DL (8.5-10.1); CARBON DIOXIDE LEVEL 26 MMOL/L (20-31); CHLORIDE LEVEL 105 MMOL/L (98-107); CHOLESTEROL LEVEL 206 MG/DL (<200); CHOLESTEROL RISK RATIO 4.17 (<5); CREATININE FOR GFR 0.65 MG/DL (0.55-1.30); GLOMERULAR FILTRATION RATE > 60.0 (>60); GLUCOSE, FASTING 116 MG/DL (60-100); HDL CHOLESTEROL 49.3 MG/DL (>40); LDL CHOLESTEROL 144.3 MG/DL (<100); NON-HDL-C 156.7 MG/DL; POTASSIUM SERUM 4.4 MMOL/L (3.5-5.1); SODIUM LEVEL 140 MMOL/L (136-145); TOTAL PROTEIN 7.5 G/DL (5.7-8.2); TRIGLYCERIDES LEVEL 62 MG/DL (<150)
[2024-06-18 09:54] LABS: THYROID STIMULATING HORMONE 23.306 uIU/ML (0.55-4.78); TOTAL 25(OH) VITAMIN D 35.4 NG/ML (20.0-100.0)
[2024-06-18 09:55] LABS: FREE T4 0.71 NG/DL (0.89-1.76)
== END ==
LOC: M LAB 08:27
PROVIDERS: ATTEND Nurse Practitioner Adult Health
DX: E06.3 Autoimmune thyroiditis (principal); E55.9 Vitamin D deficiency, unspecified; E78.00 Pure hypercholesterolemia, unspecified

== ENCOUNTER → 2025-04-02 | Outpatient (CLI) | payer OTHER ==
[~2025-04-02] MED LIST changes: -CETI-24; +CETI-24 PO; +ERGO500029 PO; +FERR32TA PO; +OMEP40CA5 PO; +ROSU10TA61 PO
== END ==
LOC: M PLAIMG 07:49
PROVIDERS: ATTEND Nurse Practitioner Adult Health
DX: K59.00 Constipation, unspecified (principal)

== ENCOUNTER 2025-04-08 06:15 | Day surgery (SDC) | payer OTHER ==
[~2025-04-08] VITALS: Ht 167.6 cm; Wt 91.4 kg
[~2025-04-08 06:15] MED LIST changes: -ROSU10TA61 PO; +ROSU10TA90 PO
[2025-04-08] MEDS ORDERED: MIDAZOLAM INJ 2 MG/2 ML VIAL As Ordered ONE (06:16)
[2025-04-08] MEDS ORDERED: ROCURONIUM BROMIDE 50MG/5ML VIAL As Ordered ONE (06:17)
[2025-04-08] MEDS ORDERED: LIDOCAINE 2% 100 MG/5 ML SDV (FOR ANES.) As Ordered ONE (06:17)
[2025-04-08] MEDS ORDERED: GLYCOPYRROLATE INJ 0.2 MG/ML 2 ML VIAL As Ordered ONE (06:17)
[2025-04-08] MEDS ORDERED: KETOROLAC 30 MG/ML 1 ML VIAL As Ordered ONE (06:18)
[2025-04-08] MEDS ORDERED: SUGAMMADEX SODIUM 200 MG/2 ML VIAL As Ordered ONE (06:18)
[2025-04-08] MEDS ORDERED: dexAMETHasone 4 MG/ML 1 ML VIAL As Ordered ONE (06:18)
[2025-04-08] MEDS ORDERED: ONDANSETRON 4MG/2ML VIAL As Ordered ONE (06:18)
[2025-04-08] MEDS ORDERED: dexmedeTOMIDine (4 MCG/ML) 200 MCG/50 ML BTL As Ordered ONE (06:28)
[2025-04-08] MEDS: LR 1,000 ML IV SCH (06:35)
[2025-04-08 07:00] LABS: PLATELET COUNT, AUTOMATED 228 10^3/uL (150-450)
[2025-04-08] MEDS ORDERED: ONDANSETRON 4MG/2ML VIAL IV PRN (08:30)
[2025-04-08] MEDS ORDERED: LR 1,000 ML IV SCH (08:30)
[2025-04-08] MEDS: HYDROMORPHONE HCL 0.5 MG/0.5 ML SYRINGE IV PRN (08:58)
[2025-04-08 09:57] VITALS: BP 126/88; TEMP 97.1; O2SAT 98
== END 2025-04-08 10:05 | disposition home or self-care (01) ==
LOC: M SDC 06:15
PROVIDERS: ATTEND Obstetrics & Gynecology
DX: Z30.2 Encounter for sterilization (principal); E03.9 Hypothyroidism, unspecified; D64.9 Anemia, unspecified; E78.00 Pure hypercholesterolemia, unspecified; Z79.899 Other long term (current) drug therapy; Z79.890 Hormone replacement therapy; K21.9 Gastro-esophageal reflux disease without esophagitis; Z88.2 Allergy status to sulfonamides; Z88.1 Allergy status to other antibiotic agents; Z88.8 Allergy status to other drugs, medicaments and biological substances; Z90.89 Acquired absence of other organs
CPT/HCPCS: 36415; 58661; 81025; 85027; 88302; J0665; J1100; J1171; J1596; J1885; J2250; J2405; J2765; J3010

== ENCOUNTER → 2025-04-21 | Outpatient (CLI) | payer OTHER | LOC: M PLAIMG 12:05 | PROVIDERS: ATTEND Family Medicine | DX: J15.8 Pneumonia due to other specified bacteria (principal) ==